=== PATIENT | female | born 1965 | race African-American/Black ===

== ENCOUNTER → 2018-07-13 | Day surgery (SDC) | payer OTHER ==
[2018-07-10 11:28] LABS: BASOPHILS % 0.6 % (0.0-1.0); EOSINOPHILS # (AUTO) 0.1 (0.0-0.4); EOSINOPHILS % 1.9 % (0.0-6.0); HEMATOCRIT 46.6 % (34.2-44.1); HEMOGLOBIN 14.7 g/dL (12.0-16.0); LYMPHOCYTES # (AUTO) 2.2 (1.0-3.2); LYMPHOCYTES % 42.3 % (18.0-39.1); MEAN CORPUSCULAR HGB CONC 31.5 g/dL (31-35); MEAN CORPUSCULAR VOLUME 91.9 fL (81-99); MONOCYTES # (AUTO) 0.4 (0.2-0.8); MONOCYTES % 7.4 % (4.4-11.3); NEUTROPHILS # (AUTO) 2.4 (2.1-6.9); NEUTROPHILS % 47.4 % (38.7-80.0); PLATELET COUNT 281 x10e3/uL (140-360); RED BLOOD COUNT 5.07 x10e6/uL (3.6-5.1); RED CELL DISTRIBUTION WIDTH 13.6 % (11.7-14.4)
[2018-07-10 11:43] LABS: ANION GAP 11.7 mmol/L (8-16); BLOOD UREA NITROGEN 13 mg/dL (7-26); BUN/CREATININE RATIO 14 (6-25); CALCIUM 10.2 mg/dL (8.4-10.2); CARBON DIOXIDE 25 mmol/L (22-29); CHLORIDE 106 mmol/L (98-107); EST GLOMERULAR FILTRATION RATE > 60 ML/MIN (60-); GLUCOSE 96 mg/dL (74-118); POTASSIUM 4.7 mmol/L (3.5-5.1); SODIUM 138 mmol/L (136-145)
--- NOTE | 2018-07-10 12:07 | Diagnostic Imaging Report ---
EXAMINATION: PA and lateral views of the chest. COMPARISON: None CLINICAL HISTORY: Preop DISCUSSION: Lines/tubes: None. Lungs: The lungs are well inflated and clear. There is no evidence of pneumonia or pulmonary edema. Pleura: There is no pleural effusion or pneumothorax. Heart and mediastinum: Cardiomediastinal silhouette is unremarkable. Pulmonary vasculature is normal. Bones and soft tissues: No acute bony abnormalities. IMPRESSION: No acute cardiopulmonary abnormalities. Signed by: Dr. Fidel Knight M.D. on 07/10/2018 12:04 PM
[~2018-07-13] MED LIST: BUPIVACAINE HCL 0.5% INJ 30 ML VIAL INJ ONE; CEFAZOLIN SOD 2 GM/D5W 50ML 50 ML IV ONE; DEXAMETHASONE SOD PHOS INJ 4 MG/ML VIAL ONE; ESTRADIOL1 MG PO; FENTANYL CITRATE/PF 100MCG/2 ML INJ ONE; LEXAPRO10 MG PO; LIDOCAINE HCL 2% LOCAL INJ 5 ML SDV VIAL INJ ONE; MIDAZOLAM HCL 2 MG/2 ML VIAL ONE; MUPIROCIN 2% OINT 22 GM TUBE ONE; ONDANSETRON HCL INJ 2 MG/ML VIAL ONE; PROGESTERONE100 MG PO; PROPOFOL IV EMULSION 10 MG/ML 20 ML VIAL ONE; SEVOFLURANE INHAL SOLN 250 ML PEN BTL ONE; TOPAMAX25 MG PO
[2018-07-13 09:45] VITALS: BP 130/87
--- NOTE | 2018-07-18 12:39 | Operative Report ---
DATE OF PROCEDURE: July 13, 2018 PREOPERATIVE DIAGNOSIS: Partially ruptured posterior tibial tendon of the right foot with accessory navicular right foot. POSTOPERATIVE DIAGNOSIS: Partially ruptured posterior tibial tendon of the right foot with accessory navicular right foot. TITLE OF OPERATION: A modified Kidner procedure with removal of accessory ossicle and bone spurring from medial navicular and medial talus along with repair of the ruptured posterior tibial tendon and reimplantation with anchor and grafting right foot. ANESTHESIA: General endotracheal. HEMOSTASIS: A right tourniquet at 350 mmHg at the thigh. PROCEDURE IN DETAIL: The patient was taken to the operating room in a mildly sedated state and placed upon the operating table I the supine position. Following induction of general anesthetic, the right lower extremity was elevated to 60 degrees to exsanguinate before inflating the pneumatic thigh tourniquet to 350 mmHg to create hemostasis. The right lower extremity was placed upon the operating table prior to performing the following procedure. Procedure number 1 is a modified Kidner procedure with repair of the posterior tibial tendon and removal of bone prominence and grafting right foot. An approximate 6 cm medial dorsal incision was placed across the dorsomedial aspect of the medial navicular of the right foot along the course of the posterior tibial tendon. The incision was deepened via sharp and blunt dissection down to the level of the dorsal capsular structure. Care was taken to identify and retract all vital structures encountered. The tendon itself was dissected free from under underlying soft-tissue constrictors, and tenosynovitis was noted along the course of the ruptured PT tendon. The tendon itself was reflected from the deep tissues, and the entirety of the large prominence of medial navicular and talus were resected utilizing an osteotome and mallet. That area was rasped smooth, and with the tendon debulked and appropriately repaired with FiberWire, an Arthrex anchor was inserted into the medial navicular, tapped appropriately, inserted, and then threaded through the medial posterior tibial tendon. This allowed for a full plication to allow for a great [id number] interface. That having been accomplished, the appropriate human tissue allograft was injected and applied around the area. The area had previously been irrigated with copious amounts of sterile saline solution. Deep closure was 3-0 Vicryl and 4-0 Vicryl. Skin closure was 4-0 nylon. The areas of surgery were then blocked with 0.5 Marcaine, and the appropriate mildly compressive dressings were applied. A posterior splint was applied. Patient left the operating room with vital signs stable, in apparent satisfactory condition, having tolerated both the anesthetic and procedure very well. Job#: [id number]
== END | disposition home or self-care (01) ==
LOC: OR 05:30
PROVIDERS: ATTEND Podiatrist Foot Surgery
DX: S92.251A Displaced fracture of navicular [scaphoid] of right foot, initial encounter for closed fracture (principal); S96.811A Strain of other specified muscles and tendons at ankle and foot level, right foot, initial encounter; K21.9 Gastro-esophageal reflux disease without esophagitis; G43.909 Migraine, unspecified, not intractable, without status migrainosus; R00.1 Bradycardia, unspecified; F41.9 Anxiety disorder, unspecified; X58.XXXA Exposure to other specified factors, initial encounter; Z01.810 Encounter for preprocedural cardiovascular examination; Z01.812 Encounter for preprocedural laboratory examination; Z01.818 Encounter for other preprocedural examination
CPT/HCPCS: 28238; 36415; 71046; 76000; 80048; 81025; 85025; 88304; 88311; 93005; J1100; J2001; J2250; J2405

== ENCOUNTER 2022-05-26 14:50 | Outpatient (RCR) | payer OTHER ==
[~2022-05-26 14:50] MED LIST changes: -BUPIVACAINE HCL 0.5% INJ 30 ML VIAL INJ ONE; -CEFAZOLIN SOD 2 GM/D5W 50ML 50 ML IV ONE; -DEXAMETHASONE SOD PHOS INJ 4 MG/ML VIAL ONE; +ESTRACE42.5 GM TOP; -FENTANYL CITRATE/PF 100MCG/2 ML INJ ONE; -LIDOCAINE HCL 2% LOCAL INJ 5 ML SDV VIAL INJ ONE; -MIDAZOLAM HCL 2 MG/2 ML VIAL ONE; -MUPIROCIN 2% OINT 22 GM TUBE ONE; -ONDANSETRON HCL INJ 2 MG/ML VIAL ONE; -PROPOFOL IV EMULSION 10 MG/ML 20 ML VIAL ONE; -SEVOFLURANE INHAL SOLN 250 ML PEN BTL ONE
== END 2022-05-29 ==
LOC: OT 14:50
PROVIDERS: ATTEND Specialist
DX: M75.122 Complete rotator cuff tear or rupture of left shoulder, not specified as traumatic (principal); S43.432A Superior glenoid labrum lesion of left shoulder, initial encounter; M65.812 Other synovitis and tenosynovitis, left shoulder

== ENCOUNTER 2022-06-27 09:00 | Outpatient (RCR) | payer OTHER | END 2022-06-29 | LOC: OT 09:00 | PROVIDERS: ATTEND Specialist | DX: Z47.89 Encounter for other orthopedic aftercare (principal); M75.122 Complete rotator cuff tear or rupture of left shoulder, not specified as traumatic ==

== ENCOUNTER 2022-07-25 09:56 | Outpatient (RCR) | payer OTHER | END 2022-07-29 | LOC: OT 09:56 | PROVIDERS: ATTEND Specialist | DX: Z47.89 Encounter for other orthopedic aftercare (principal); M75.122 Complete rotator cuff tear or rupture of left shoulder, not specified as traumatic ==

== ENCOUNTER 2022-08-12 09:59 | Outpatient (RCR) | payer OTHER | END 2022-08-29 | LOC: OT 09:59 | PROVIDERS: ATTEND Specialist | DX: M75.122 Complete rotator cuff tear or rupture of left shoulder, not specified as traumatic (principal); Z47.89 Encounter for other orthopedic aftercare ==